=== PATIENT | female | born 1990 | race Hispanic/Latino ===

== ENCOUNTER 2023-06-28 16:42 | Day surgery (SDC) | payer OTHER ==
[2023-06-28 17:31] VITALS: BMI 27.9
== END 2023-06-28 18:14 | disposition home or self-care (01) ==
LOC: CSHLD/OP 16:42
PROVIDERS: ATTEND Family Medicine
DX: O47.1 False labor at or after 37 completed weeks of gestation (principal); Z3A.37 37 weeks gestation of pregnancy

== ENCOUNTER 2023-06-30 02:15 | Day surgery (SDC) | payer OTHER ==
[2023-06-30 02:42] VITALS: BMI 29.0
[2023-06-30] MEDS ORDERED: hydrALAZINE 20 MG/ML VIAL SLOW IVP PRN (05:04)
== END 2023-06-30 05:05 | disposition home or self-care (01) ==
LOC: CSHLD/OP 02:15
PROVIDERS: ATTEND Family Medicine
DX: O47.1 False labor at or after 37 completed weeks of gestation (principal); O23.593 Infection of other part of genital tract in pregnancy, third trimester; N93.8 Other specified abnormal uterine and vaginal bleeding; Z79.899 Other long term (current) drug therapy; Z3A.37 37 weeks gestation of pregnancy
CPT/HCPCS: 87480; 87510; 87660; 99283

== ENCOUNTER 2023-07-03 08:49 | Inpatient (IN) | payer MEDICAID, OTHER, SELFPAY ==
[2023-07-03] MEDS ORDERED: Tranexamic Acid 1,000 MG/10 ML VIAL IVP PRN (09:14)
[2023-07-03] MEDS ORDERED: fentaNYL 50 mcg/mL 1 mL Vial SLOW IVP PRN (09:14)
[2023-07-03] MEDS ORDERED: Promethazine HCl 25 MG/ML VIAL IM PRN ×2 (09:14→10:42)
[2023-07-03] MEDS ORDERED: Acetaminophen 500 MG TAB PO PRN (09:14)
[2023-07-03] MEDS ORDERED: hydrALAZINE 20 MG/ML VIAL SLOW IVP PRN ×2 (09:14→17:57)
[2023-07-03] MEDS ORDERED: Ondansetron PF 4 MG/2 ML Vial IVP PRN ×3 (09:14→17:57)
[2023-07-03] MEDS ORDERED: HYDROcodone/Acetaminophen 5/325 mg Tablet PO PRN ×2 (09:14→17:57)
[2023-07-03] MEDS ORDERED: Ibuprofen 800 MG TAB PO PRN (09:14)
[2023-07-03] MEDS ORDERED: Lidocaine 1% (PF) 30 ML VIAL SC PRN (09:14)
[2023-07-03] MEDS ORDERED: Diphenoxylate HCl/Atropine Tablet PO PRN (09:14)
[2023-07-03] MEDS ORDERED: Methylergonovine 0.2 MG/ML VIAL IM PRN (09:14)
[2023-07-03] MEDS ORDERED: Misoprostol 200 MCG TAB PR PRN (09:14)
[2023-07-03] MEDS ORDERED: Carboprost 250 MCG/ML AMP IM PRN (09:14)
[2023-07-03] MEDS ORDERED: Lactated Ringer's 1,000 ML IV SCH (09:15)
[2023-07-03] MEDS ORDERED: Oxytocin 30 units/NS 500 ML 500 ML IV SCH ×3 (09:15)
[2023-07-03 09:20] VITALS: BMI 29.0
[2023-07-03 09:33] LABS: Hematocrit 38.8 % (34.9-44.5); Hemoglobin 13.4 g/dL (12.0-15.5); Mean Corpuscular HGB CONC 34.5 g/dL (32.0-36.0); Mean Corpuscular Hemoglobin 29.2 pg (27.0-33.0); Mean Corpuscular Volume 84.5 fl (81.6-98.3); Mean Platelet Volume 11.5 fl (7.4-10.4); Platelet Count 208 10x3/uL (150-450); RBC Distribution Width 13.4 % (11.5-14.5); Red Blood Cell (RBC) Count 4.59 10x6/uL (3.90-5.03); White Blood Cell (WBC) Count 7.4 10x3/uL (3.5-10.5)
[2023-07-03] MEDS ORDERED: fentaNYL/Ropivacaine Epidural 100 ML ONE (09:43)
[2023-07-03] MEDS ORDERED: Bupivacaine 0.25% HCL 30 ML VIAL ONE (10:00)
[2023-07-03 10:03] LABS: HBSAg Index 0.09 S/CO (0-0.99); Hep B Surf Ag - L&D Non-Reactive S/CO (NonReactive)
[2023-07-03 10:04] LABS: Syphilis Antibody Nonreactive (Nonreactive); Syphilis Antibody Index 0.03 S/CO (<1.00 Non-Reactive)
[2023-07-03] MEDS ORDERED: ePHEDrine Sulfate 50 MG/10 ML VIAL SLOW IVP PRN (10:42)
[2023-07-03] MEDS ORDERED: diphenhydrAMINE 50 MG/ML VIAL IVP PRN (10:42)
[2023-07-03] MEDS ORDERED: Naloxone HCl 0.4 mg/ml Vial IVP PRN ×2 (10:42)
[2023-07-03] MEDS ORDERED: Lactated Ringer's 500 ML IV PRN (10:42)
[2023-07-03] MEDS ORDERED: Moisturizing Cream (Eucerin) 113 GM JAR TOP PRN (10:42)
[2023-07-03] MEDS ORDERED: Acetaminophen 325 MG TAB PO PRN (10:42)
[2023-07-03] MEDS ORDERED: fentaNYL 2 mcg/Ropivacaine 0.2% Epidural 100 ML CADD EPIDURAL SCH (10:45)
[2023-07-03] MEDS ORDERED: Communication Order-Pharmacy FS SCH (10:45)
[2023-07-03] MEDS ORDERED: Lanolin Ointment 7 GM TUBE TOP PRN (17:57)
[2023-07-03] MEDS ORDERED: Benzocaine-Menthol 82.5 ML CAN TOP PRN (17:57)
[2023-07-03] MEDS ORDERED: Bisacodyl 10 MG SUPP PR PRN (17:57)
[2023-07-03] MEDS ORDERED: Milk Of Magnesia 30 ML UDCUP PO PRN (17:57)
[2023-07-03] MEDS ORDERED: Boostrix 0.5 ML (Tdap) VIAL (>/=7 yrs of age) IM ONE (17:57)
[2023-07-03] MEDS ORDERED: diphenhydrAMINE 25 MG CAP PO PRN (17:57)
[2023-07-03] MEDS ORDERED: Ferrous Sulfate 325 MG TAB PO SCH (18:30)
[2023-07-03] MEDS: Ibuprofen 800 MG TAB PO SCH (21:33)
[2023-07-03] MEDS: Docusate 100 MG CAP PO SCH (21:34)
[2023-07-04] MEDS: Ibuprofen 800 MG TAB PO SCH ×2 (05:11→14:15)
[2023-07-04] MEDS: Docusate 100 MG CAP PO SCH (07:29)
[2023-07-04] MEDS: Ferrous Sulfate 325 MG TAB PO SCH ×2 (07:30→16:18)
[2023-07-04] MEDS ORDERED: Prenatal Vitamin 1 TAB PO SCH (09:00)
[2023-07-04 11:06] VITALS: BP 104/65; TEMP 98.5
== END 2023-07-04 18:35 | disposition home or self-care (01) | DRG 807 ==
LOC: CSHLD 08:49 → CSHPP 17:54
PROVIDERS: ADMIT Family Medicine; ATTEND Family Medicine
PROC: 10E0XZZ Delivery of Products of Conception, External Approach (ICD-10-PCS; principal; 2023-07-03)
PROC: 10907ZC Drainage of Amniotic Fluid, Therapeutic from Products of Conception, Via Natural or Artificial Opening (ICD-10-PCS; 2023-07-03)
PROC: 3E0P7VZ Introduction of Hormone into Female Reproductive, Via Natural or Artificial Opening (ICD-10-PCS; 2023-07-03)
PROC: 3E033XZ Introduction of Vasopressor into Peripheral Vein, Percutaneous Approach (ICD-10-PCS; 2023-07-03)
DX: O80 Encounter for full-term uncomplicated delivery (principal); Z37.0 Single live birth; O69.81X0 Labor and delivery complicated by cord around neck, without compression, not applicable or unspecified; Z3A.38 38 weeks gestation of pregnancy
CPT/HCPCS: 36415; 51702; 85027; 86780; 86850; 86900; 86901; 87340; 99285; J2590; S0020